=== PATIENT | female | born 1945 | race Caucasian/White ===

== ENCOUNTER 2017-02-17 08:21 | Inpatient (IN) | payer MEDICARE ==
[~2017-02-17] VITALS: Ht 167.6 cm; Wt 74.0 kg
[~2017-02-17 08:21] MED LIST: ALBU8.5H3 INH; ALEN70TA5 PO; CALC-192 PO; CETI10CA PO; FLUT1DIS IH; LEVO100T5 PO; MONT10TA9 PO
[2017-02-17] MEDS ORDERED: SODIUM CHLORIDE 0.9% 1,000 ML IV ONE (08:57)
[2017-02-17] MEDS ORDERED: NITROGLYCERIN SINGLE TAB 0.4 MG SL PRN (09:00)
[2017-02-17] MEDS ORDERED: ASPIRIN 81 MG TABLET CHEW PO ONE (09:00)
[2017-02-17] MEDS ORDERED: SODIUM CHLORIDE FLUSH 10ML SYR IVF ONE (09:00)
[2017-02-17 09:32] LABS: BLOOD UREA NITROGEN 13 mg/dL (7-18)
[2017-02-17 09:33] LABS: ASPARTATE AMINO TRANSFERASE 20 U/L (15-37)
[2017-02-17] MEDS ORDERED: ASPIRIN 81 MG TABLET CHEW ONE (09:36)
[2017-02-17 09:38] LABS: IS PT STATUS REG ER OR PRE ER? YES
[2017-02-17] MEDS ORDERED: NITROGLYCERIN OINT 2%, 1GM TP ONE (10:30)
[2017-02-17 12:43] VITALS: BP 149/59
[2017-02-17] MEDS ORDERED: ENALAPRILAT 1.25 MG/ML, 2ML IV PRN (14:30)
[2017-02-17] MEDS ORDERED: ALBUTEROL SULFATE 2.5 MG/3 ML NPPB PRN (14:30)
[2017-02-17 15:50] LABS: IS PT STATUS REG ER OR PRE ER? NO
[2017-02-17] MEDS ORDERED: OMNIPAQUE 350 MG/ML, 100ML BOTTLE ONE ×2 (18:46→18:47)
[2017-02-17 19:54] VITALS: BP 160/63
[2017-02-17] MEDS ORDERED: MONTELUKAST 10 MG TABLET PO SCH (21:00)
[2017-02-17 21:50] LABS: IS PT STATUS REG ER OR PRE ER? NO
[2017-02-17 22:24] VITALS: BP_SYST 143; BP_SYST 179; BP_DIAS 79; BP_DIAS 83
[2017-02-17] MEDS ORDERED: NITROGLYCERIN 0.4 MG BOTTLE (25 TABS) SL PRN (22:30)
[2017-02-17] MEDS ORDERED: NITROGLYCERIN 0.4 MG/SPRAY SL PRN (22:30)
[2017-02-18 01:28] VITALS: BP 119/73
[2017-02-18 07:43] VITALS: BP 158/69
[2017-02-18] MEDS ORDERED: ENOXAPARIN 40 MG/0.4 ML SQ SCH (08:00)
[2017-02-18] MEDS ORDERED: REGADENOSON 0.4 MG/5 ML SYRINGE ONE (08:48)
[2017-02-18] MEDS ORDERED: FLUTICASONE/VILANTEROL 100-25MCG/INH INH SCH (09:00)
[2017-02-18] MEDS ORDERED: ASPIRIN 81 MG TABLET EC PO SCH (09:00)
[2017-02-18] MEDS ORDERED: LORATADINE 10 MG TABLET PO SCH (09:00)
[2017-02-18] MEDS ORDERED: LEVOTHYROXINE 100 MCG TABLET PO SCH (09:00)
[2017-02-18 13:15] VITALS: BP 136/66
[2017-02-18] MEDS ORDERED: NITR0.4T SL (15:05)
== END 2017-02-18 17:45 | disposition home or self-care (01) | DRG 206 ==
LOC: ED 09:20 → EDIP 10:22 → 5SO 11:13
PROVIDERS: ADMIT Internal Medicine; ATTEND Internal Medicine
DX: M94.0 Chondrocostal junction syndrome [Tietze] (principal); E03.9 Hypothyroidism, unspecified; F41.9 Anxiety disorder, unspecified; I10 Essential (primary) hypertension; I49.1 Atrial premature depolarization; J45.909 Unspecified asthma, uncomplicated; M81.0 Age-related osteoporosis without current pathological fracture; Z87.891 Personal history of nicotine dependence; Z87.440 Personal history of urinary (tract) infections; Z88.0 Allergy status to penicillin; Z88.2 Allergy status to sulfonamides; Z88.5 Allergy status to narcotic agent; K22.4 Dyskinesia of esophagus
CPT/HCPCS: 36415; 71010; 71275; 78452; 80053; 83690; 83880; 84439; 84443; 84484; 85025; 85379; 93005; 93017; 93306; 96360; J1650; J2785; Q9967; A9502; C9898; J7030

== ENCOUNTER → 2017-10-23 | Outpatient (CLI) | payer MEDICARE ==
[~2017-10-23] MED LIST changes: -ALBU8.5H3 INH; +ALBU8.5H8 INH; +NITR0.4T SL
== END ==
LOC: CFH 10:42
PROVIDERS: ATTEND Internal Medicine
DX: J45.909 Unspecified asthma, uncomplicated (principal)
CPT/HCPCS: 71046

== ENCOUNTER 2019-12-27 21:20 | Emergency (ER) | payer MEDICARE ==
[~2019-12-27] VITALS: Ht 167.6 cm; Wt 73.0 kg
[~2019-12-27 21:20] MED LIST changes: +ACET325T14 PO; +ALBU8.5H8 IH; -ALEN70TA5 PO; +ALEN70TA6 PO; +ATOR40TA78 PO; +CALC-534 PO; +DOCU100C33 PO; +LEVO75TA5 PO; +LOSA50TA14 PO; +MONT10TA11 PO; -MONT10TA9 PO; -NITR0.4T SL; +NITR0.4T41 SL; +TRIA10.8 NAS; +[UNRECOGNIZED DRUG - OTHER] PO; +advil PO; +baby aspirin PO
[2019-12-27] MEDS ORDERED: LABETALOL 5MG/ML, 20ML ONE (22:20)
[2019-12-27] MEDS ORDERED: LABETALOL 5MG/ML, 20ML IVPush ONE (22:30)
[2019-12-27] MEDS ORDERED: SODIUM CHLORIDE FLUSH 10ML SYR IVF ONE (22:30)
[2019-12-27 22:44] VITALS: BP 142/86
[2019-12-27 22:55] LABS: BASOPHILS # (AUTO) 0.04 x10^3/uL (0-0.1); BASOPHILS % (AUTO) 1 % (0-1); EOSINOPHILS # (AUTO) 0.16 x10^3/uL (0-0.4); EOSINOPHILS % (AUTO) 2 % (1-7); LYMPHOCYTES # (AUTO) 1.36 x10^3/uL (1-3.4); LYMPHOCYTES % (AUTO) 17 % (22-44); MD NO; MEAN CORPUSCULAR HEMOGLOBIN 31.3 pg (27.0-34.8); MEAN CORPUSCULAR HGB CONC 33.7 g/dL (32.4-35.8); MEAN CORPUSCULAR VOLUME 92.8 fL (80-100); MEAN PLATELET VOLUME 7.7 fL (7.4-10.4); MONOCYTES # (AUTO) 0.95 x10^3/uL (0.2-0.8); MONOCYTES % (AUTO) 12 % (2-9); NEUTROPHILS # (AUTO) 5.71 x10^3/uL (1.8-6.8); NEUTROPHILS % (AUTO) 70 % (42-75); PLATELET COUNT 234 x10^3/uL (130-400); RED BLOOD COUNT 4.12 x10^6/uL (3.82-5.3); RED CELL DISTRIBUTION WIDTH 12.3 % (9.6-15.2)
[2019-12-27 22:59] LABS: ANION GAP 7 mmol/L (5-15); CALCIUM 8.8 mg/dL (8.5-10.1); CHLORIDE 108 mmol/L (98-107); CREATININE 0.75 mg/dL (0.55-1.02)
== END 2019-12-27 23:44 | disposition home or self-care (01) ==
LOC: ED 22:01
DX: I10 Essential (primary) hypertension (principal); J45.909 Unspecified asthma, uncomplicated; E05.90 Thyrotoxicosis, unspecified without thyrotoxic crisis or storm; R94.31 Abnormal electrocardiogram [ECG] [EKG]
CPT/HCPCS: 36415; 80048; 85025; 93005; 99284

== ENCOUNTER → 2020-04-09 | Outpatient (CLI) | payer MEDICARE | END | disposition home or self-care (01) | LOC: CVU 09:21 | PROVIDERS: ATTEND Surgery | DX: I65.22 Occlusion and stenosis of left carotid artery (principal) | CPT/HCPCS: 93880 ==

== ENCOUNTER → 2020-08-11 | Outpatient (CLI) | payer MEDICARE | END | disposition home or self-care (01) | LOC: CFH 13:04 | PROVIDERS: ATTEND Internal Medicine Cardiovascular Disease | DX: R06.02 Shortness of breath (principal); I10 Essential (primary) hypertension | CPT/HCPCS: 78452; 93017; A9502 ==

== ENCOUNTER → 2021-05-19 | Outpatient (CLI) | payer MEDICARE ==
[~2021-05-19] MED LIST changes: -ALEN70TA6 PO; +ALEN70TA77 PO; +ALPR1TAB2 PO; -MONT10TA11 PO; +MONT10TA17 PO
== END | disposition home or self-care (01) ==
LOC: CVU 15:37
PROVIDERS: ATTEND Surgery
DX: I65.23 Occlusion and stenosis of bilateral carotid arteries (principal); I10 Essential (primary) hypertension
CPT/HCPCS: 93880